=== PATIENT | female | born 1975 | race Caucasian/White ===

== ENCOUNTER → 2016-11-01 | Outpatient (CLI) | payer OTHER ==
[~2016-11-01] MED LIST: AUGM875 PO; OXYC-360 PO; PREV30CA36; SERT100 PO
== END ==
LOC: CLAB 06:54
PROVIDERS: ATTEND Family Medicine
DX: K21.9 Gastro-esophageal reflux disease without esophagitis (principal)
CPT/HCPCS: 36415; 83735; 84443

== ENCOUNTER → 2017-01-30 | Outpatient (CLI) | payer OTHER | LOC: CLAB 06:51 | PROVIDERS: ATTEND Family Medicine | DX: E03.9 Hypothyroidism, unspecified (principal) | CPT/HCPCS: 36415; 84443 ==